=== PATIENT | female | born 1975 | race Caucasian/White ===

== ENCOUNTER 2019-03-10 19:11 | Inpatient (IN) | payer BC ==
[~2019-03-10] VITALS: Ht 170.2 cm; Wt 68.0 kg
--- NOTE | 2019-03-10 19:44 | NUR ---
PT RESTING IN BED, AAOX4 WITH C/O 10/10 LOWER ABD PAIN WITH N/V SINCE 1PM TODAY. PT DENIES ANY TRUAMA/INJURY. PT DENIES ANY DIARRHEA/CONSTIPATION, FEVER OR URINARY PROBLEMS AT THIS TIME. PT PLACED ON MONITOR. AT BEDSIDE.
[2019-03-10 21:21] LABS: PLATELET COUNT 286 x10^3mcL (130-400); RED CELL DISTRIBUTION WIDTH 13.4 % (11.5-14.5)
[2019-03-10 21:22] LABS: BASOPHIL % 0 % (0-2)
[2019-03-10 21:47] LABS: UA SPECIFIC GRAVITY 1.015 (1.005-1.035); microscopic required? YES; urine erythrocyte TRACE (NEGATIVE)
[2019-03-10 21:59] LABS: ALBUMIN 3.9 g/dL (3.4-5.0); CARBON DIOXIDE 24.9 mmol/L (21-32); CHLORIDE SERUM 103 mmol/L (98-107); CREATININE SERUM 0.8 mg/dL (0.6-1.0); GFR1 > 60 mL/min; GLUCOSE SERUM 105 mg/dL (74-106); POTASSIUM SERUM 3.6 mmol/L (3.5-5.1); SODIUM SERUM 137 mmol/L (136-145); TOTAL PROTEIN, SERUM 7.7 g/dL (6.4-8.2)
[2019-03-10 22:00] LABS: ALKALINE PHOSPHATASE 58 U/L (46-116); ALT/SGPT 27 U/L (14-59); AMYLASE 44 U/L (25-115); AST/SGOT 16 U/L (15-37); BILIRUBIN TOTAL 0.5 mg/dL (0.20-1.00); CALCIUM 8.7 mg/dL (8.5-10.1); LIPASE 86 IU/L (73-393)
--- NOTE | 2019-03-10 22:15 | NUR ---
PT OFF OF FLOOR TO CT SCAN.
--- NOTE | 2019-03-10 22:50 | NUR ---
PT RESTING IN BED ON LT SIDE WITH EYES CLOSED WITH AT BEDSIDE.
--- NOTE | 2019-03-10 23:25 | NUR ---
REPORT GIVEN TO BIB VILLALBA.
--- NOTE | 2019-03-11 00:10 | NUR ---
RECEIVED PT FROM ED VIA WHEELCHAIR, CAME IN DUE TO ABDOMINAL PAIN AND VOMITING X1 DAY. AAOX4. DENIES HEADACHE/DIZZINESS. ABLE TO FOLLOW COMMANDS. NO SOB NOTED, LUNG SOUNDS CTA, O2 SAT-98%, RA. DENIES CHEST PAIN/PRESSURE, IN=51. STATED THAT SHE HAS 5/10 PRESSURE LOWER ABDOMINAL PAIN, VOMITED X5 FLOWER PICKER. DENIES NAUSEA/VOMITING AT THIS TIME. ABDOMEN IS SOFT. BOWEL SOUNDS ACTIVE. VOIDS. RECEIVED PT FROM ED W/ NS AND NINAN ONGOING. IV SITE PATENT AND INTACT. SIDE RAILS UPX2. CALL LIGHT ON REACH. AT BEDSIDE. ENDORSED TO PRIMARY NURSE ISABELLA AT BEDSIDE FOR CONTINUITY OF CARE
[2019-03-11 00:23] VITALS: BP 114/49
[2019-03-11 00:25] VITALS: Ht 170.2 cm; Wt 68.0 kg
--- NOTE | 2019-03-11 00:42 | NUR ---
RECEIVED PT FROM TIMA FRAZIER NO ACUTE DISTRESS NOTED, PT STATED MY PAIN I S MANAGEABLE AT THE MEMENT . PIV INTACT INFUSING SOZYN AT THE MOMENT , NO REACTION NOTED, CALL LIGHT WITHIN PT'S REACH , WILL CON'T TO MONITOR PT CLOSELY .
--- NOTE | 2019-03-11 02:49 | NUR ---
I HAVE REVIEWED THE DATA COLLECTION BY NALINI (NAME):ISABELLA HAYWOOD ENTERED ON (DATE/TIME):03/10/2019 I CONCUR WITH THE DATA AND ANY EXCEPTIONS OR COMMENTS ARE LISTED BELOW:
[2019-03-11 05:14] VITALS: BP 114/57
--- NOTE | 2019-03-11 06:23 | NUR ---
NO CHANGES OF CONDITION NOTED , ALL DUE MEDS GIVEN NO REACTION NOTED , PT DENY PAIN AT THE MOMENT , KEPT PT NPO ORDERED , PIV INTACT INFUSING WELL .
[2019-03-11 06:26] LABS: AMPHETAMINE QUAL UR NONE DETECTED (See below)
[2019-03-11 06:58] LABS: BASOPHIL % 0.1 % (0-2); PLATELET COUNT 262 x10^3mcL (130-400); RED CELL DISTRIBUTION WIDTH 13.5 % (11.5-14.5)
--- NOTE | 2019-03-11 07:10 | NUR ---
RECEIVED PT FROM NIGHT RN. PT RESTING IN BED. AAOX4. RESPIRATION EVEN AND UNLABORED. NON-TELE. C/O OF MILD ABD PAIN BUT STATED PAIN IS TOLERABLE. IV SITE TO R AC AND PATENT. NS AT 100ML/HR. BED IN LOWEST POSITION, CALL LIGHT WITHIN REACH. WILL CONTINUE TO MONITOR.
[2019-03-11 07:42] LABS: CARBON DIOXIDE 23 mmol/L (21-32); CHLORIDE SERUM 104 mmol/L (98-107); GLUCOSE SERUM 101 mg/dL (74-106); POTASSIUM SERUM 3.7 mmol/L (3.5-5.1); SODIUM SERUM 137 mmol/L (136-145)
[2019-03-11 07:43] LABS: CALCIUM 8.3 mg/dL (8.5-10.1); CREATININE SERUM 0.7 mg/dL (0.6-1.0); GFR1 > 60 mL/min; MAGNESIUM 1.9 mg/dL (1.8-2.4); PHOSPHOROUS 3.3 mg/dL (2.5-4.9)
--- NOTE | 2019-03-11 08:30 | NUR ---
AT 0810 - RECEIVED CALL FROM OR NURSEMAICOL. REPORT GIVEN. DR PANIAGUA HAS SPOKEN WITH PATIENT. PRE-OP SKIN PREP WITH CHLORHEXIDINE WIPES DONE. PATIENT PREPARED FOR SURGERY. AT 0825 - CONSENT FOR LAPAROSCOPIC APPENDECTOMY, POSSIBLE OPEN WITH POSSIBLE DRAIN PLACEMENT, SIGNED BY PATIENT. PATIENT TAKEN TO SURGERY. WWNT WITH PATIENT TO WAIT IN SURGERY WAITING ROOM.
[2019-03-11 11:01] VITALS: BP 106/44
--- NOTE | 2019-03-11 11:11 | NUR ---
AT 1040 - PATIENT BACK IN ROOM FOLLOWING LAP APPY (RUPTURED) UNDER GENERAL ANAESTHESIA. PATIENT IS AWAKE, ALERT AND ORIENTED. NO C/O PAIN AT THIS TIME. SURGICAL INCISIONS X 4 TO ABDOMEN WITH DERMABOND. OPEN TO AIR, LOOK CLEAN AND DRY. IV INFUSION OF NS RESUMED AT 100 ML/HR. PATIENT TO COMMENCE CLEAR LIQUID DIET. AT BEDSIDE.
[2019-03-11 11:46] VITALS: BP 106/45
--- NOTE | 2019-03-11 12:30 | NUR ---
PT C/O PAIN. MEDICATED WITH TYLENOL PER EMAR.
--- NOTE | 2019-03-11 15:44 | NUR ---
PATIENT REPORTS PAIN UNDER CONTROL. HAS AMBULATED AND VOIDED POST OP. SCDS TO BLE IN PLACE.
[2019-03-11 16:20] VITALS: BP 108/62
--- NOTE | 2019-03-11 17:55 | NUR ---
PT EATING DINNER AND TOLERATING WELL. DENIES PAIN/DISCOMFORT. IV SITE TO R AC W/ ZOSYN AT 100ML/HR. 4 SURGICAL INCISIONS TO ABDOMEN LOOKS CLEAN AND DRY. BED IN LOWEST POSITION, CALL LIGHT WITHIN REACH. WILL ENDORSE CARE TO NEXT SHIFT.
--- NOTE | 2019-03-11 20:00 | NUR ---
PT A/A/O X4, FAMILY AT BEDSIDE. PT DENIES DIZZINESS AND HEADACHE. BREATH SOUNDS CLEAR. BREATHING EVEN AND UNLABORED ON ROOM AIR. DENIES CHEST PAIN AND PRESSURE. BOWEL SOUNDS ACTIVE. NO C/O N/V AND ABD PAIN. SCATTERED SURGICAL WOUND ON ABDOMEN WITH DERMA ZHAO NOTED C/D/I. IV INTACT ON THE RAC INFUSING WITH NS AT 100 ML/HR. MADE PT COMFORTABLE. PLACED CALL LIGHT WITH IN REACH. WILL CONTINUE TO MONITOR.
[2019-03-11 20:40] VITALS: BP 104/50
--- NOTE | 2019-03-11 21:12 | NUR ---
PT C/O ABDOMINAL PAIN WHEN LAYING ON THE SIDE AND WHEN USING THE INCENTIVE SPIROMETER. GAVE PT NORCO PO. PT TOLERATED IT WELL. PT ADMITS TO BURPING AND VOIDING THUS FAR WITH NO PROBLEM. WILL CONTINUE TO MONITOR.
--- NOTE | 2019-03-12 00:17 | NUR ---
PT RESTING WITH EYES CLOSED. NO DISTRESS AND DISCOMFORT NOTED. WILL CONTINUE TO MONITOR.
[2019-03-12 04:53] VITALS: BP 98/49
[2019-03-12 06:31] LABS: BASOPHIL % 0.3 % (0-2); PLATELET COUNT 218 x10^3mcL (130-400); RED CELL DISTRIBUTION WIDTH 13.3 % (11.5-14.5)
--- NOTE | 2019-03-12 06:48 | NUR ---
PT QUIET AND RESTING. C/O HEADACHE GAVE PT TYLENOL PO. PT TOLERATED IT WELL. SCATTERED DERMA ZHAO ON THE ABDOMEN C/D/I. MADE PT COMFORTABLE. PLACED CALL LIGHT WITH IN REACH. WILL ENDORSE TO THE AM NURSE ACCORDINGLY.
--- NOTE | 2019-03-12 07:15 | NUR ---
RECEIVED PT FROM NIGHT RN. PT RESTING IN BED. AAOX4. RESP E/U. DENIES PAIN/DISCOMFORT. NON-TELE. PT ADMITS TO PASSED GAS. IV SITE TO R AC WIH 100 ML/HR NS. BED IN LOWEST POSITION, CALL LIGHT WITHIN REACH. WILL CONTINUE TO MONITOR.
[2019-03-12 07:19] LABS: CALCIUM 7.8 mg/dL (8.5-10.1); CARBON DIOXIDE 25.7 mmol/L (21-32); CHLORIDE SERUM 106 mmol/L (98-107); CREATININE SERUM 0.7 mg/dL (0.6-1.0); GFR1 > 60 mL/min; GLUCOSE SERUM 77 mg/dL (74-106); POTASSIUM SERUM 3.4 mmol/L (3.5-5.1); SODIUM SERUM 140 mmol/L (136-145)
[2019-03-12 07:20] LABS: MAGNESIUM 1.8 mg/dL (1.8-2.4); PHOSPHOROUS 2.5 mg/dL (2.5-4.9)
[2019-03-12 08:20] VITALS: BP 101/50
[2019-03-12] MEDS ORDERED: NORCO1 TA2 PO (09:49)
[2019-03-12 12:03] VITALS: BP 102/50
[2019-03-12 12:54] VITALS: BP 102/50
--- NOTE | 2019-03-12 14:33 | NUR ---
REMVOVED SALINE LOCK, ANGIO INTACT. GAVE DISCHARGE INSTRUCTIONS AND PRESCRIPTION. SHE VERBALIZED "I UNDERSTAND" TO ALL INSTRUCTIONS. PHOTO WAS TAKEN OF INCISIONS TO ABDOMEN (APPROXIMATED WITH DERMAGLUE AND SITE IS CDI WITHOUT REDNESS OR DRAINAGE) SHE HAS AMBUALTED AND IS BURPING AND PASSING GAS RECTALLY. AAO TIMES 4. PRESENT TO TAKE HER HOME.
== END 2019-03-12 14:54 | disposition home or self-care (01) | DRG 340 ==
LOC: ED 19:11 → MU 23:13
PROVIDERS: Emergency Medicine; Surgery; ADMIT Internal Medicine
PROC: 0WQF4ZZ Repair Abdominal Wall, Percutaneous Endoscopic Approach (ICD-10-PCS; 2019-03-11)
PROC: 0DTJ4ZZ Resection of Appendix, Percutaneous Endoscopic Approach (ICD-10-PCS; principal; 2019-03-11 08:00)
DX: K35.32 Acute appendicitis with perforation, localized peritonitis, and gangrene, without abscess (principal); K42.9 Umbilical hernia without obstruction or gangrene; D64.9 Anemia, unspecified; Z80.9 Family history of malignant neoplasm, unspecified; Z82.49 Family history of ischemic heart disease and other diseases of the circulatory system
CPT/HCPCS: 94150; C1758; G0378; J0330; J0694; J1170; J2270; J2405; J2543; J2704; J2710; J3010; J3490; J7030; J7120; Q0092; Q9967